=== PATIENT | male | born 1935 | race American Indian/Alaskan Native ===

== ENCOUNTER 2021-10-13 07:15 | Emergency (ER) | payer OTHER ==
[2021-10-13 10:04] LABS: Bilirubin,Urine Color Interference (Negative); Color,Urine Red (Yellow)
[2021-10-13 10:05] LABS: Blood,Urine Color Interference (Negative); Protein,Urine Color Interference mg/dL (Negative); RBC,Urine > 182.0 /HPF (0.0-6.0)
[2021-10-13] MEDS ORDERED: SODIUM CHLORIDE 0.9% 1000 ML 1,000 ML IV ONE (10:15)
--- NOTE | 2021-10-13 10:53 | Emergency Department Report ---
ED Abdominal Pain HPI - General Chief Complaint: Urogenital-Male Stated Complaint: BLOOD IN URINE PUI?: No Time Seen by Provider: 10/13/21 07:58 Source: patient Mode of arrival: Ambulatory Limitations: No Limitations - History of Present Illness Initial Comments: Mr. Lowe a pleasant 86-year-old male who comes to the emergency room complaining of bloody urine. He has a history of prostate troubles but states that he is never has peed blood. [place] at [place]. He has no back pain. No abdominal pain. No nausea vomiting. He actually has no pain he is just complaining of the hematuria. He is ambulatory, nontoxic and [id number]. He is much younger than his stated age. Severity scale (0 -10): 0 Improves With: nothing Worsens With: nothing Associated Symptoms: denies other symptoms - Related Data Allergies Allergy/AdvReac Type Severity Reaction Status Date / Time No Known Allergies Allergy Unverified 10/13/21 07:48 ED Review of Systems ROS: Stated complaint: BLOOD IN URINE Other details as noted in HPI Comment: All other systems reviewed and negative ED Past Medical Hx - Past Medical History Previous Medical History?: Yes Additional medical history: PROSTATE DISEASE - Surgical History Past Surgical History?: Yes - Family History Family history: no significant - Social History Smoking Status: Never Smoker Substance Use Type: Alcohol ED Physical Exam - General Limitations: No Limitations General appearance: alert, in no apparent distress - Head Head exam: Present: atraumatic, normocephalic - Eye Eye exam: Present: normal appearance - ENT ENT exam: Present: mucous membranes moist - Neck Neck exam: Present: normal inspection - Respiratory Respiratory exam: Present: normal lung sounds bilaterally. Absent: respiratory distress - Cardiovascular Cardiovascular Exam: Present: regular rate, normal rhythm. Absent: systolic murmur, diastolic murmur, rubs, gallop - GI/Abdominal GI/Abdominal exam: Present: soft, normal bowel sounds - Rectal Rectal exam: Present: deferred - Extremities Exam Extremities exam: Present: normal inspection - Back Exam Back exam: Present: normal inspection - Neurological Exam Neurological exam: Present: alert, oriented X3 - Psychiatric Psychiatric exam: Present: normal affect, normal mood - Skin Skin exam: Present: warm, dry, intact, normal color. Absent: rash ED Medical Decision Making - Lab Data Result diagrams: 10/13/21 10:23 10/13/21 10:23 - Radiology Data Radiology results: report reviewed, image reviewed See report - Medical Decision Making Lab Results 10/13/21 10/13/21 10/13/21 Range/Units 10:23 10:23 Unknown WBC 5.3 (4.5-11.0) K/mm3 RBC 5.00 (3.65-5.03) M/mm3 Hgb 13.0 (11.8-15.2) gm/dl Hct 39.7 (35.5-45.6) % MCV 80 L (84-94) fl MCH 26 L (28-32) pg MCHC 33 (32-34) % RDW 15.9 H (13.2-15.2) % Plt Count 162 (140-440) K/mm3 Sodium 141 (137-145) mmol/L Potassium 3.7 (3.6-5.0) mmol/L Chloride 103.5 (98-107) mmol/L Carbon Dioxide 27 (22-30) mmol/L Anion Gap 14 mmol/L BUN 13 (9-20) mg/dL Creatinine 1.3 (0.8-1.3) mg/dL Estimated GFR > 60 ml/min BUN/Creatinine Ratio 10 % Glucose 107 H (75-100) mg/dL Calcium 9.1 (8.4-10.2) mg/dL Urine Color Red (Yellow) Urine Turbidity Turbid (Clear) Urine pH Not Reportable Urine Protein Color interference (Negative) mg/dL Urine Glucose (UA) Color interference (Negative) mg/dL Urine Ketones Color interference (Negative) mg/dL Urine Blood Color interference (Negative) Urine Nitrite Color interference (Negative) Urine Bilirubin Color interference (Negative) Urine Ictotest Not Reportable Urine Urobilinogen Not Reportable Ur Leukocyte Esterase Color interference (Negative) Urine WBC (Auto) 3.0 (0.0-6.0) /HPF Urine RBC (Auto) > 182.0 (0.0-6.0) /HPF U Epithel Cells (Auto) 2.0 (0-13.0) /HPF Vital signs have been normal no hypotension or tachycardia. Patient has no fever. The system is not crossing over from the machine to the EMR. Nurses been informed on numerous occasions and well corrected. Patient is ambulatory, nontoxic [id number]. Patient is urinating. It is bloody. A CT scan was negative for kidney stones. He has known BPH disease. I explained to patient the findings from the CT scanner and that it he needs to drink a lot of water and follow-up with his urologist ALMITA so that he does not develop inability to urinate and further problems. He verbalizes understanding. He already has an appointment with the [place] tomorrow. Labs noted. WBC normal. Creatinine normal. Patient given a liter normal saline in the ER. He tolerated well. Patient is ambulatory, nontoxic [id number] on discharge exam. Patient being discharged home with discharge plan of care including diet, activity, medications and follow-up. He verbalizes understanding of plan of care - Differential Diagnosis Rule out UTI, Fabián, BPH, cystitis, kidney stone Critical care attestation.: If time is entered above; I have spent that time in minutes in the direct care of this critically ill patient, excluding procedure time. ED Disposition Clinical Impression: Hematuria, Prostate disease Disposition: 01 HOME / SELF CARE / HOMELESS Is pt being admited?: No Does the pt Need Aspirin: No Condition: Stable Instructions: Hematuria, Adult Additional Instructions: FOLLOW UP WITH URO ALMITA Referrals: VIJAYA PARNELL MD [Primary Care Provider] - 3-5 Days JULISA JAVED MD [Staff Physician] - 3-5 Days Time of Disposition: 13:49
[2021-10-13 11:15] LABS: Hematocrit 39.7 % (35.5-45.6); Mean Corpuscular HGB Conc 33 % (32-34); Mean Corpuscular Volume 80 fl (84-94); Platelet Count 162 K/mm3 (140-440); Red Cell Distribution Width 15.9 % (13.2-15.2)
--- NOTE | 2021-10-13 11:25 | Cat Scan Report ---
CT ABDOMEN AND PELVIS WITHOUT CONTRAST HISTORY: hematuria COMPARISON: None. TECHNIQUE: Axial CT images were obtained through the abdomen and pelvis without IV contrast. Sagittal and coronal reformatted images. All CT scans at this location are performed using CT dose reduction for ALARA by means of automated exposure control. FINDINGS: CT ABDOMEN: Lung Bases: Clear. Liver: No significant abnormality. Biliary: No significant abnormality. Spleen: No significant abnormality. Unenlarged. Pancreas: No significant abnormality. Adrenals: No significant abnormality. Kidneys: Both kidneys are normal size, contour and position. No nephrolithiasis is detected. 1 cm exo phytic hypodensity projects from the superior right kidney. There is an ill-defined 2.3 cm hypodensit y in the superior left kidney. These probably represent small cysts but are poorly evaluated on nonco ntrast CT. Consider correlation with ultrasound. The ureters are normal course and caliber. Lymphatics: No lymphadenopathy. Vasculature: No significant abnormality. Bowel/Peritoneum: The appendix is normal. No evidence for bowel obstruction or focal inflammation. Th ere is moderate to large fecal matter throughout the colon. There are scattered diverticula in the di stal colon without evidence of diverticulitis. A moderate sized indirect left inguinal hernia contain ing a loop of sigmoid colon is identified. The hernia sac measures up to [address] PELVIS: : The bladder is mildly distended. There is hyperdense material settling within the dependent porti ons of the bladder consistent with blood/thrombus. There is an approximate 6 cm diverticulum projecti ng from the dome of the bladder. No obvious bladder mass or wall abnormality. The prostate gland is e nlarged measuring 6.4 cm in diameter. Osseous Structures: No acute injury is appreciated. There is benign-appearing cystic change in the le ft iliac wing. No convincing suspicious bony lesion. Additional Findings: None IMPRESSION: The bladder is mildly distended and appears to contain blood products. No discrete bladder mass is ap preciated on noncontrast CT. This hemorrhage may be associated with an enlarged prostate gland. Bladd er diverticulum is noted. There is no evidence for nephrolithiasis. There are small renal hypodensities which probably represen t cysts as described. Indirect left inguinal hernia containing a segment of sigmoid colon. No evidence for obstruction or i nflammation. Constipation. Signer Name: Jarrett Rhodes Jr, MD Signed: 10/13/2021 11:21 AM Workstation Name: [id number]
[2021-10-13 11:38] LABS: BUN/Creatinine Ratio 10; Blood Urea Nitrogen 13 mg/dL (9-20); Calcium 9.1 mg/dL (8.4-10.2); Hemolysis Index 6
== END 2021-10-13 13:51 | disposition home or self-care (01) ==
LOC: ED 07:15
DX: R31.9 Hematuria, unspecified (principal); N40.1 Benign prostatic hyperplasia with lower urinary tract symptoms; F10.20 Alcohol dependence, uncomplicated
CPT/HCPCS: 36415; 74176; 80048; 81001; 85027; 96360; 99284